=== PATIENT | male | born 1995 | race Caucasian/White ===

== ENCOUNTER 2016-08-20 17:20 | Emergency (ER) | payer SELFPAY ==
[2016-08-20 17:33] VITALS: BMI 23.8
[2016-08-20] MEDS ORDERED: KETOROLAC TROMETHAMINE 30 MG/1 ML VIAL IM ONE (18:09)
--- NOTE | 2016-08-20 18:18 | PDOC ---
History of Present Illness - General History Source: Patient Exam Limitations: No Limitations - History of Present Illness Initial Comments: 08/20/16 18:30 The patient is a 20 year old male, with no significant past medical history, who presents to the emergency department with chest pain and bilateral upper extremity pain for the past 4 days. He describes his chest pain as a pressure sensation localized in the middle of his chest, ranging from mild to moderate, without radiation. He reports that at times when he takes a deep breath, it exacerbates his chest pain. He describes his upper extremity pain as ranging from his biceps to his hands and intermittent in nature. He states that the pain started while he was still in [place] and that he arrived in the [place] today. He also states that while he was still in [place] he was experiencing abdominal pain and diarrhea, they prescribed him vancomycin. He notes that he no longer has those symptoms. The patient denies shortness of breath, headache and dizziness. Denies fever, chills, nausea, vomit, diarrhea and constipation. Allergies: None Past surgical history: None reported Social history: Cigarette use (2-3 monthly) No alcohol or drug use reported <Keith Montana - Last Filed: 08/20/16 18:41> - General History Source: Patient Exam Limitations: No Limitations <Alden Masters - Last Filed: 08/20/16 19:31> - General Chief Complaint: Chest Pain Stated Complaint: PAIN Time Seen by Provider: 08/20/16 17:55 Past History <Keith Montana - Last Filed: 08/20/16 18:41> - Psycho/Social/Smoking Cessation Hx Anxiety: No Suicidal Ideation: No Smoking History: Never smoked Have you smoked in the past 12 months: No Information on smoking cessation initiated: No Hx Alcohol Use: No Drug/Substance Use Hx: No Substance Use Type: None <Alden Masters - Last Filed: 08/20/16 19:31> - Past Medical History Allergies/Adverse Reactions: Allergies Allergy/AdvReac Type Severity Reaction Status Date / Time No Known Allergies Allergy Verified 08/20/16 17:22 Home Medications: Ambulatory Orders Ibuprofen 600 mg PO Q6H PRN #20 tablet 08/20/16 Review of Systems - Review of Systems Able to Perform ROS?: Yes Comments:: 08/20/16 18:28 GENERAL/CONSTITUTIONAL: No fever or chills. No weakness. HEAD, EYES, EARS, NOSE AND THROAT: No change in vision. No ear pain or discharge. No sore throat. CARDIOVASCULAR: (+) Chest pain. No shortness of breath RESPIRATORY: No cough, wheezing, or hemoptysis. GASTROINTESTINAL: No nausea, vomiting, diarrhea or constipation. GENITOURINARY: No dysuria, frequency, or change in urination. MUSCULOSKELETAL: No joint or muscle swelling or pain. No neck or back pain. EXTREMITIES: (+) Bilateral upper extremity pain. SKIN: No rash NEUROLOGIC: No headache, vertigo, loss of consciousness, or change in strength/ sensation. ENDOCRINE: No increased thirst. No abnormal weight change HEMATOLOGIC/LYMPHATIC: No anemia, easy bleeding, or history of blood clots. ALLERGIC/IMMUNOLOGIC: No hives or skin allergy. <Keith Montana - Last Filed: 08/20/16 18:41> *Physical Exam - Vital Signs Last Vital Signs Temp Pulse Resp BP Pulse Ox 97.6 F 52 L 18 127/73 100 08/20/16 17:22 08/20/16 17:22 08/20/16 17:22 08/20/16 17:22 08/20/16 17:22 - Physical Exam Comments: 08/20/16 18:29 GENERAL: Awake, alert, and fully oriented, in no acute distress HEAD: No signs of trauma, normocephalic, atraumatic EYES: PERRLA, EOMI, sclera anicteric, conjunctiva clear ENT: Auricles normal inspection, hearing grossly normal, nares patent, oropharynx clear without exudates. Moist mucosa NECK: Normal ROM, supple, no lymphadenopathy, JVD, or masses LUNGS: No distress, speaks full sentences, clear to auscultation bilaterally HEART: Regular rate and rhythm, normal S1 and S2, no murmurs, rubs or gallops, peripheral pulses normal and equal bilaterally. ABDOMEN: Soft, nontender, normoactive bowel sounds. No guarding, no rebound. No masses MUSCULOSKELETAL: (+) Tenderness to palpation to the anterior chest and bilateral biceps. EXTREMITIES: Normal range of motion, no edema. No clubbing or cyanosis. NEUROLOGICAL: Cranial nerves II through XII grossly intact. Normal speech, normal gait, no focal sensorimotor deficits SKIN: Warm, Dry, normal turgor, no rashes or lesions noted. <Keith Montana - Last Filed: 08/20/16 18:41> - Vital Signs Last Vital Signs Temp Pulse Resp BP Pulse Ox 97.6 F 52 L 18 127/73 100 08/20/16 17:22 08/20/16 17:22 08/20/16 17:22 08/20/16 17:22 08/20/16 17:22 <Alden Masters - Last Filed: 08/20/16 19:31> Heart Score/ECG Review #1 ECG reviewed & interpreted by me at: 17:45 08/20/16 19:05 NSR 56, TWI V1-V2, no std/glenn, early repolarization, QTC 387 msec <Alden Masters - Last Filed: 08/20/16 19:31> ED Treatment Course - RADIOLOGY Radiology Studies Ordered: Category Date Time Status CHEST PA & LAT [RAD] Stat Radiology 08/20/16 18:09 Ordered <Alden Masters - Last Filed: 08/20/16 19:31> Medical Decision Making - Medical Decision Making 08/20/16 19:02 A portion of this note was documented by scribe services under my direction. I have reviewed the details of the note, within reason, and agree with the documentation with the following case summary and management plan written by me. Patient treated in the ED. Nursing notes are reviewed and incorporated into the medical decision-making. Vital signs reviewed. Peripheral IV access obtained by the nurse, laboratory studies are drawn and sent, reviewed and interpreted by myself. Vital Signs Temp Pulse Resp BP Pulse Ox 97.6 F 52 L 18 127/73 100 08/20/16 17:22 08/20/16 17:22 08/20/16 17:22 08/20/16 17:22 08/20/16 17:22 20-year-old male with no past medical history presents with atypical chest pain. The patient recently child will for [place] today. However, chest pain started before arrival here. He reports he is reproducible chest pain that radiates to his bilateral biceps. States that movement and palpation worsens the pain. He is not taking any medications. He reports palpation of the chest pain worsens the pain. Denies short of breath. Came to the ED for further evaluation. The EKG is reassuring and without any symptoms. Chest x-ray reviewed, pending official radiology read. No pneumothorax, no pleural effusions, no infiltrates. Likely musculoskeletal. Will discharge patient with PMD follow up. I discussed the physical exam findings, ancillary test results and final diagnoses with the patient. I answered all of the patient's questions. The patient was satisfied with the care received and felt comfortable with the discharge plan and treatment plan. The patient will call their primary care physician within 24 hours to arrange follow-up and will return to the Emergency Department with any new, persistant or worsening symptoms. <Alden Masters - Last Filed: 08/20/16 19:31> *DC/Admit/Observation/Transfer - Attestations Scribe Attestion: 08/20/16 18:28 Documentation prepared by Keith Montana, acting as medical numerical control operator for Alden Masters MD <Keith Montana - Last Filed: 08/20/16 18:41> - Discharge Dispostion Admit: No <Alden Masters - Last Filed: 08/20/16 19:31> Diagnosis at time of Disposition: Atypical chest pain - Discharge Dispostion Disposition: HOME Condition at time of disposition: Improved - Prescriptions Prescriptions: Ibuprofen 600 mg PO Q6H PRN #20 tablet PRN Reason: Pain - Patient Instructions Printed Discharge Instructions: DI for Atypical Chest Pain Additional Instructions: Please take 600 mg ibuprofen every 6 hours as needed for pain. Print Language: DJIBOUTIAN
[2016-08-20] MEDS ORDERED: KETOROLAC TROMETHAMINE 30 MG/1 ML VIAL ONE (18:34)
[2016-08-20 20:42] VITALS: BP 126/77; PULSE 68; TEMP 97.9
--- NOTE | 2016-08-21 11:24 | EKG ---
Test Reason : Blood Pressure : / mmHG Vent. Rate : 056 BPM Atrial Rate : 056 BPM P-R Int : 140 ms QRS Dur : 096 ms QT Int : 402 ms P-R-T Axes : 055 079 047 degrees QTc Int : 387 ms SINUS BRADYCARDIA EARLY REPOLARIZATION OTHERWISE NORMAL ECG NO PREVIOUS ECGS AVAILABLE Confirmed by OCHOA GALAVIZ MD ([id number]) on 08/21/2016 11:24:18 AM Referred By: Confirmed By:OCHOA GALAVIZ MD
== END 2016-08-20 20:43 | disposition home or self-care (01) ==
LOC: JER 17:20
PROC: 3E0233Z Introduction of Anti-inflammatory into Muscle, Percutaneous Approach (ICD-10-PCS; principal; 2016-08-20)
DX: R07.89 Other chest pain (principal)
CPT/HCPCS: 71020-TC; 93005; 93010; 99283-25